=== PATIENT | female | born 1955 | race Caucasian/White ===

== ENCOUNTER 2016-07-18 10:02 | Observation (INO) | payer BC ==
[2016-07-18] VITALS (8 sets, daily range): BP systolic 96–131; BP diastolic 52–79; PULSE 50–80; RESP 18–20; TEMP 97.4–97.9; O2SAT 96–100
[~2016-07-18] VITALS: Ht 165.1 cm; Wt 75.0 kg
[~2016-07-18 10:02] MED LIST: ATOR10TA15 PO; LISI10TA3 PO; OMEP20TA PO; PARO20TA2 PO; TOPI1TAB97 PO; TRAM50TA PO
[2016-07-18] MEDS ORDERED: SODIUM CHLOR 0.9% 1000 ML INJ 1,000 ML IV ONE (11:57)
[2016-07-18] MEDS ORDERED: SODIUM CHLORIDE 0.9% FLUSH 5 ML FLUSH IVF PRN (12:00)
--- NOTE | 2016-07-18 12:06 | PD ---
HPI Chief Complaint: Cardiac Complaint Time Seen by Provider: 11:42 Travel History International Travel<30 days: No Contact w/Intl Traveler<30days: No Traveled to known affect area: No History of Present Illness HPI This is a 61-year-old female who has a history of Crohn's disease who presents to the emergency department having onset 2 days ago of severe vomiting and epigastric abdominal pain following starting Dulcolax to prep for colonoscopy. She's been following with Dr. Crawley because a CT scan that she had was concerning for Crohn's disease in the transverse colon. She's been having chronic abdominal pain which is been going on for about 6 weeks. She went to an outside hospital to be evaluated for her vomiting and at that time she was found to be in atrial fibrillation which is a new diagnosis for her. Her heart rate was evidently in the 140s to 160s. She received IV Cardizem and ultimately was started on diltiazem and was discharged home with instructions to follow-up with Dr. Ohara this morning first thing in clinic. She says that she feels very dehydrated, lightheaded and dizzy. When she went to clinic this morning she found out that Dr. Ohara is not in the office today and she subsequently had an episode of near syncope where she nearly passed out but didn 't hit her head or hurt herself. She denies any chest pain. Currently she says she feels weak and fatigued. She does report abdominal pain but she says this is chronic for her and unchanged. She's been on a liquid diet for one week in the setting of the Crohn's disease. Yesterday she was started on a blood thinner and given a dose of oral long-acting diltiazem in the emergency department and asked to follow up today with Dr. Ohara. [facility] Past Medical History Narrative Medical Crohn's disease Atrial fibrillation Social History Tobacco Use: No Allergies-Medications (Allergen,Severity, Reaction): Coded Allergies: Aspirin (Verified Allergy, Severe, 07/18/16) Ativan (Verified Allergy, Severe, 07/18/16) Cephalexin (Verified Allergy, Severe, 07/18/16) Contrast Media (Verified Allergy, Severe, 07/18/16) Dipyridamole (Verified Allergy, Severe, 07/18/16) Inderal (Verified Allergy, Severe, 07/18/16) Iodine (Verified Allergy, Severe, 07/18/16) Keflex (Verified Allergy, Severe, 07/18/16) Vancomycin (Verified Allergy, Severe, 07/18/16) Reported Meds & Prescriptions Reported Meds & Active Scripts Active Reported Topiramate 25 Mg Tab 25 Mg PO HS Paroxetine (Paroxetine HCl) 20 Mg Tab 20 Mg PO DAILY Omeprazole 20 Mg Tab 20 Mg PO DAILY Lisinopril 10 Mg Tab 10 Mg PO DAILY Atorvastatin (Atorvastatin Calcium) 10 Mg Tab 10 Mg PO DAILY Review of Systems Except as stated in HPI: all other systems reviewed are Neg Physical Exam Narrative GENERAL: Moving all extremities. SKIN: Dry with skin tenting HEAD: Atraumatic. Normocephalic. EYES: Pupils equal and round. No injection or drainage. ENT: Dry mucous membranes. NECK: Trachea midline. CARDIOVASCULAR: Regular rate and rhythm. No murmur appreciated. RESPIRATORY: Clear to auscultation. Breath sounds equal bilaterally. GASTROINTESTINAL: Abdomen soft, diffusely tender to palpation with guarding MUSCULOSKELETAL: No obvious deformities. NEUROLOGICAL: Awake and alert. No obvious cranial nerve deficits. Moving all extremities. PSYCHIATRIC: Appropriate mood and affect; insight and judgment normal. Data Data Last Documented VS Vital Signs Date Time Temp Pulse Resp B/P Pulse Ox O2 Delivery O2 Flow Rate FiO2 07/18/16 12:23 57 07/18/16 12:22 100 Room Air 07/18/16 12:00 19 131/79 07/18/16 10:06 97.8 Orders Electrocardiogram (07/18/16 ) Complete Blood Count With Diff (07/18/16 11:57) Comprehensive Metabolic Panel (07/18/16 11:57) Magnesium (Mg) (07/18/16 11:57) B-Type Natriuretic Peptide (07/18/16 11:57) Troponin I (07/18/16 11:57) Ecg Monitoring (07/18/16 11:57) Iv Access Insert/Monitor (07/18/16 11:57) Oximetry (07/18/16 11:57) Sodium Chloride 0.9% Flush (Ns Flush) (07/18/16 12:00) Sodium Chlor 0.9% 1000 Ml Inj (Ns 1000 M (07/18/16 11:57) Sodium Chlor 0.9% 1000 Ml Inj (Ns 1000 M (07/18/16 13:45) Morphine Inj (Morphine Inj) (07/18/16 14:15) Admit Order (Ed Use Only) (07/18/16 14:16) Labs Laboratory Tests Test 07/18/16 12:08 White Blood Count 5.8 TH/MM3 Red Blood Count 4.50 MIL/MM3 Hemoglobin 13.9 GM/DL Hematocrit 40.9 % Mean Corpuscular Volume 91.0 FL Mean Corpuscular Hemoglobin 31.0 PG Mean Corpuscular Hemoglobin 34.0 % Concent Red Cell Distribution Width 13.1 % Platelet Count 214 TH/MM3 Mean Platelet Volume 8.9 FL Neutrophils (%) (Auto) 63.0 % Lymphocytes (%) (Auto) 28.6 % Monocytes (%) (Auto) 6.8 % Eosinophils (%) (Auto) 1.4 % Basophils (%) (Auto) 0.2 % Neutrophils # (Auto) 3.7 TH/MM3 Lymphocytes # (Auto) 1.7 TH/MM3 Monocytes # (Auto) 0.4 TH/MM3 Eosinophils # (Auto) 0.1 TH/MM3 Basophils # (Auto) 0.0 TH/MM3 CBC Comment DIFF FINAL Differential Comment Sodium Level 141 MEQ/L Potassium Level 4.3 MEQ/L Chloride Level 114 MEQ/L Carbon Dioxide Level 19.3 MEQ/L Anion Gap 8 MEQ/L Blood Urea Nitrogen 14 MG/DL Creatinine 0.84 MG/DL Estimat Glomerular Filtration 68 ML/MIN Rate Random Glucose 84 MG/DL Calcium Level 7.4 MG/DL Protein Corrected Calcium 7.8 MG/DL Magnesium Level 1.7 MG/DL Total Bilirubin 1.1 MG/DL Aspartate Amino Transf 35 U/L (AST/SGOT) Alanine Aminotransferase 18 U/L (ALT/SGPT) Alkaline Phosphatase 101 U/L Troponin I 0.03 NG/ML B-Type Natriuretic Peptide 26 PG/ML Total Protein 6.4 GM/DL Albumin 2.9 GM/DL Lipase 67 U/L [facility] Medical Decision Making Medical Screen Exam Complete: Yes Emergency Medical Condition: Yes Interpretation(s) Afebrile, no tachycardia, normotensive No leukocytosis Anion gap of 8 Bicarbonate is 19 BNP is normal Lipase is normal Differential Diagnosis Arrhythmia, electrolyte abnormality, dehydration, myocardial infarction Narrative Course This is a 61-year-old female who presents the emergency department having had a difficult week with vomiting following a colonoscopy prep complicated by atrial fibrillation with RVR, subsequently having had a syncopal episode at 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 On exam the patient appears dehydrated. She is placed on a monitor and an IV was established. Labs are reassuring EKG is a normal sinus rhythm. Given the patient's recurrent visit to the emergency department and episode of syncope this morning at think it's reasonable to place her in observation and titrate her medications and monitor for recurrent episodes of arrhythmia. I spoke to both Dr. Ohara and her retail supervisor who agreed. Diagnosis Primary Impression: Dehydration Admitting Information Admitting Physician Requests: Observation Macrina Redmond MD Jul 18, 2016 12:06
[2016-07-18 12:21] LABS: AUTOMATED NEUTROPHIL # 3.7 TH/MM3 (1.8-7.7); BASOPHIL % 0.2 % (0.0-2.0); EOSINOPHIL # 0.1 TH/MM3 (0-0.4); EOSINOPHIL % 1.4 % (0.0-4.0); HEMATOCRIT 40.9 % (35.0-46.0); HEMO FLAGS DIFF FINAL; LYMPH % 28.6 % (9.0-44.0); LYMPHOCYTE # 1.7 TH/MM3 (1.0-4.8); MONO % 6.8 % (0.0-8.0); PLATELET COUNT 214 TH/MM3 (150-450); RED CELL DISTRIBUTION WIDTH 13.1 % (11.6-17.2); WHITE BLOOD COUNT 5.8 TH/MM3 (4.0-11.0)
[2016-07-18 13:14] LABS: BICARBONATE 19.3 MEQ/L (21.0-32.0); CALCIUM-PROTEIN CORRECTED 7.8 MG/DL (8.5-10.1); MAGNESIUM 1.7 MG/DL (1.5-2.5); TOTAL BILIRUBIN ADULT 1.1 MG/DL (0.2-1.0)
[2016-07-18 13:15] LABS: POTASSIUM 4.3 MEQ/L (3.5-5.1)
[2016-07-18] MEDS ORDERED: SODIUM CHLOR 0.9% 1000 ML INJ 1,000 ML IV SCH (13:45)
[2016-07-18] MEDS ORDERED: MORPHINE SULFATE 4 MG/ML INJ IV PUSH ONE (14:15)
[2016-07-18] MEDS ORDERED: ONDANSETRON HCL 4 MG/2 ML VIAL IVP PRN (14:30)
[2016-07-18] MEDS ORDERED: SODIUM CHLORIDE 0.9% FLUSH 5 ML FLUSH FLUSH PRN (14:30)
[2016-07-18] MEDS: ATORVASTATIN 10 MG TAB PO SCH (14:30)
[2016-07-18] MEDS ORDERED: NALOXONE HCL 0.4 MG/ML AMP IV PRN (14:30)
[2016-07-18] MEDS ORDERED: ACETAMINOPHEN 325 MG TAB PO PRN (14:30)
--- NOTE | 2016-07-18 14:48 | HHI.HP ---
HPI Service [facility] Primary Care Physician Pete Smith M.D. Admission Diagnosis syncope Diagnoses: Chief Complaint: passed out (Linda Pinto) Travel History International Travel<30 Days: No Contact w/Intl Traveler <30 Da: No Traveled to Known Affected Are: No (Linda Pinto) History of Present Illness This is a pleasant 61-year-old female with history of Crohn's disease, presented to the emergency room after she had what sounds like a near syncopal episode while waiting to be seen by cardiology. Patient endorses that she has been having abdominal pain, has seen Dr. Perez for history of gallstones as well as Dr. Birmingham gastroenterology for Crohn's disease. Both doctors were trying to rule out the cause of her abdominal pain., whether it was gallstones vs Chron's flare up. She was scheduled to have a EGD aand colonoscopy today. Yesterday while undergoing prep, she developed increased nausea and vomiting therefore she was told by Dr. [place] to go to [facility] to the emergency room. During evaluation at that facility, EKG showed that the patient was in A. fib with RVR with heart rate between 140 and 160. GI work up was put on hold. She was given IV Diltiazem and then was given Cardizem CD and instructed to follow up with Dr. Ohara today. Patient denies prior history of atrial fibrillation. Indicates that since April 2016, she's had palpitations with dizziness and near syncopal episodes. Cardiology has done workup consisting of echo, carotid ultrasound and stress test and were all negative. Cardiac cath 06/2016 showed normal coronaries. Patient states that while waiting to see her paper bundler today, she fell very lightheaded and dizzy. She found that that he was not in the office and she subsequently had a near syncopal episode. She was eased down to the floor by her , she did not hit her head, no neck pain. No chest pain, no shortness of breath. She feels very weak and fatigued, has diffuse abdominal tenderness which she says is chronic and unchanged. States that she's been on a liquid diet for 1 week waiting for GI workup. Yesterday she ate a sandwich and tolerated well. She has episodes of constipation and diarrhea associated with Chron's. She is not on any maintenance therapy. During ED evaluation, she was evaluated, was hemodynamically stable. Heart rate is noted a 57, sinus rhythm. CBC is unremarkable. BMP is remarkable for carbon dioxide 19.3, low calcium 7.8 with total bilirubin 1.1. GFR 68. EKG was sinus rhythm. Patient was given a liter IV fluids. At this time she is resting comfortably, complaining of diffuse abdominal tenderness with minimal palpation which is unchanged. Pain more significant to epigastric area. Patient is admitted for further evaluation and treatment. (Linda Pinto) Review of Systems Constitutional: COMPLAINS OF: Dizziness, DENIES: Diaphoretic episodes, Fatigue , Fever, Weight gain, Weight loss, Chills, Change in appetite, Night Sweats Endocrine: DENIES: Abnorml menstrual pattern, Heat/cold intolerance, Polydipsia , Polyuria, Polyphagia Eyes: DENIES: Blurred vision, Diplopia, Eye inflammation, Eye pain, Vision loss , Photosensitivity, Double Vision Ears, nose, mouth, throat: DENIES: Tinnitus, Hearing loss, Vertigo, Nasal discharge, Oral lesions, Throat pain, Hoarseness, Ear Pain, Running Nose, Epistaxis, Sinus Pain, Toothache, Odynophagia Respiratory: DENIES: Apneas, Cough, Snoring, Wheezing, Hemoptysis, Sputum production, Shortness of breath Cardiovascular: COMPLAINS OF: Palpitations, Syncope, DENIES: Chest pain, Dyspnea on Exertion, PND, Lower Extremity Edema, Orthopnea, Claudication Gastrointestinal: COMPLAINS OF: Abdominal pain, Constipation, Diarrhea, DENIES : Black stools, Bloody stools, Nausea, Vomiting, Difficulty Swallowing, Anorexia Genitourinary: DENIES: Abnormal vaginal bleeding, Dysmenorrhea, Dyspareunia, Sexual dysfunction, Urinary frequency, Urinary incontinence, Urgency, Hematuria , Dysuria, Nocturia, Vaginal discharge Musculoskeletal: DENIES: Joint pain, Muscle aches, Stiffness, Joint Swelling, Back pain, Neck pain Integumentary: DENIES: Abnormal pigmentation, Pruritus, Rash, Nail changes, Breast masses, Breast skin changes, Nipple discharge Hematologic/lymphatic: DENIES: Bruising, Lymphadenopathy Immunologic/allergic: DENIES: Eczema, Urticaria Neurologic: DENIES: Abnormal gait, Headache, Localized weakness, Paresthesias, Seizures, Speech Problems, Tremor, Poor Balance Psychiatric: DENIES: Anxiety, Confusion, Mood changes, Depression, Hallucinations, Agitation, Suicidal Ideation, Homicidal Ideation, Delusions ( Linda Pinto) Past Family Social History Past Medical History Hypertension Recent diagnosis of A. fib Recent findings of cholelithiasis Crohn's disease, with chronic constipation and diarrhea, has been on prednisone in the past GERD Chronic headaches Carotid artery disease Chronic left carotid bruit Hyperlipidemia Depression Past Surgical History Right carotid endarterectomy [address] Lester Cardiac catheter June 2016 with normal coronaries Discectomy 2 Hemorrhoidectomy Reported Medications Reported Meds & Active Scripts Active Reported Topiramate 25 Mg Tab 25 Mg PO HS Paroxetine (Paroxetine HCl) 20 Mg Tab 20 Mg PO DAILY Omeprazole 20 Mg Tab 20 Mg PO DAILY Lisinopril 10 Mg Tab 10 Mg PO DAILY Atorvastatin (Atorvastatin Calcium) 10 Mg Tab 10 Mg PO DAILY (Linda Pinto) Allergies: Coded Allergies: Aspirin (Verified Allergy, Severe, 07/18/16) Ativan (Verified Allergy, Severe, 07/18/16) Cephalexin (Verified Allergy, Severe, 07/18/16) Contrast Media (Verified Allergy, Severe, 07/18/16) Dipyridamole (Verified Allergy, Severe, 07/18/16) Inderal (Verified Allergy, Severe, 07/18/16) Iodine (Verified Allergy, Severe, 07/18/16) Keflex (Verified Allergy, Severe, 07/18/16) Vancomycin (Verified Allergy, Severe, 07/18/16) Active Ordered Medications Inpatient Medications Acetaminophen (Tylenol) 650 mg Q4H PRN PO TEMP > 100.4; Start 07/18/16 at 14:30 Atorvastatin Calcium (Lipitor) 10 mg DAILY PO ; Start 07/18/16 at 14:30 Diltiazem HCl (Cardizem) 30 mg QID PO ; Start 07/18/16 at 18:00 IV Flush (NS Flush) 2 ml BID FLUSH ; Start 07/18/16 at 21:00 Morphine Sulfate 4 mg 4 mg ONCE ONCE IV PUSH ; Start 07/18/16 at 14:15; Stop at 14:16; Status DC Naloxone HCl (Narcan Inj) 0.4 mg UNSCH PRN IV SEE LABEL COMMENTS; Start at 14:30 Ondansetron HCl (Zofran Inj) 4 mg Q6H PRN IVP NAUSEA OR VOMITING; Start at 14:30 Pantoprazole Sodium (Protonix) 20 mg DAILY PO ; Start 07/18/16 at 14:30 Paroxetine HCl (Paxil) 20 mg DAILY PO ; Start 07/19/16 at 09:00 Sodium Chloride (NS 1000 ml Inj) 1,000 ml @ 100 mls/hr Q10H IV ; Start at 14:18 Topiramate (Topamax) 25 mg HS PO ; Start 07/18/16 at 21:00 Family History Mother is alive and well, she is 83 years old, history of CAD, CABG Father Social History Patient is , lives at home with . No EtOH, no tobacco abuse, no substance abuse. (Linda Pinto) Physical Exam Vital Signs Vital Signs Date Time Temp Pulse Resp B/P Pulse Ox O2 Delivery O2 Flow Rate FiO2 07/18/16 12:23 57 07/18/16 12:22 100 Room Air 07/18/16 10:06 97.8 80 20 130/66 98 Room Air Physical Exam GENERAL: This is a well-nourished, well-developed patient, in no apparent distress. SKIN: No rashes, ecchymoses or lesions. Cool and dry. HEAD: Atraumatic. Normocephalic. No temporal or scalp tenderness. EYES: Pupils equal round and reactive. Extraocular motions intact. No scleral icterus. No injection or drainage. ENT: Nose without bleeding, purulent drainage or septal hematoma. Throat without erythema, tonsillar hypertrophy or exudate. Uvula midline. Airway patent. NECK: Trachea midline. No JVD or lymphadenopathy. Supple, nontender, no meningeal signs. Left carotid bruit. CARDIOVASCULAR: Regular rate and rhythm without murmurs, gallops, or rubs. RESPIRATORY: Clear to auscultation. Breath sounds equal bilaterally. No wheezes , rales, or rhonchi. GASTROINTESTINAL: Diffuse abdominal tenderness with minimal palpation, normoactive bowel sounds 4. Unable to detect any organomegaly, does not permit deep palpation due to discomfort. Indicates pain is chronic. MUSCULOSKELETAL: Extremities without clubbing, cyanosis, or edema. No joint tenderness, effusion, or edema noted. No calf tenderness. Negative Homans sign bilaterally. NEUROLOGICAL: Awake and alert. Cranial nerves II through XII intact. Motor and sensory grossly within normal limits. Five out of 5 muscle strength in all muscle groups. Normal speech. Laboratory Laboratory Tests Test 07/18/16 12:08 White Blood Count 5.8 Red Blood Count 4.50 Hemoglobin 13.9 Hematocrit 40.9 Mean Corpuscular Volume 91.0 Mean Corpuscular Hemoglobin 31.0 Mean Corpuscular Hemoglobin 34.0 Concent Red Cell Distribution Width 13.1 Platelet Count 214 Mean Platelet Volume 8.9 Neutrophils (%) (Auto) 63.0 Lymphocytes (%) (Auto) 28.6 Monocytes (%) (Auto) 6.8 Eosinophils (%) (Auto) 1.4 Basophils (%) (Auto) 0.2 Neutrophils # (Auto) 3.7 Lymphocytes # (Auto) 1.7 Monocytes # (Auto) 0.4 Eosinophils # (Auto) 0.1 Basophils # (Auto) 0.0 CBC Comment DIFF FINAL Differential Comment Sodium Level 141 Potassium Level 4.3 Chloride Level 114 Carbon Dioxide Level 19.3 Anion Gap 8 Blood Urea Nitrogen 14 Creatinine 0.84 Estimat Glomerular Filtration 68 Rate Random Glucose 84 Calcium Level 7.4 Protein Corrected Calcium 7.8 Magnesium Level 1.7 Total Bilirubin 1.1 Aspartate Amino Transf 35 (AST/SGOT) Alanine Aminotransferase 18 (ALT/SGPT) Alkaline Phosphatase 101 Troponin I 0.03 B-Type Natriuretic Peptide 26 Total Protein 6.4 Albumin 2.9 (Linda Pinto) Result Diagram: 07/18/16 1208 07/18/16 1208 Assessment and Plan Problem List: (1) Near syncope (2) Dehydration (3) Abdominal pain (4) Atrial fibrillation (5) Hypertension (6) Hx of Crohn's disease (7) History of carotid artery disease Assessment and Plan Admit to Dr. Jones 61-year-old white female with recent diagnosis of atrial fibrillation, came to emergency room after near syncopal episode. Patient has been undergoing bowel prep, had been clear liquid diet since last , was dehydrated. Received Cardizem CD yesterday at emergency room at another facility. Patient admitted with near syncopal episode, EKG- sinus rhythm -Continue IV fluids Continuous cardiac telemetry Cardiology consultation, Dr. Ohara Chronic abdominal pain, currently undergoing workup to rule out cholelithiasis versus Crohn's disease recurrence. Patient was due to have EGD and colonoscopy today -Morphine when necessary -Antiemetics PRN We will obtain records from [facility] Hypertension, stable Continue home medications History of carotid disease, previous right enterectomy, left carotid bruit, stable Continue to monitor, continue with statins Home medications reviewed, initiated as indicated Plan of care discussed with the patient, attending and registered nurse. Further management of the patient be dependent on the hospital course This patient was seen by myself and Dr. 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
[2016-07-18] MEDS: PANTOPRAZOLE SOD 20 MG DELAYED RELEASE TAB PO SCH (15:20)
[2016-07-18] MEDS: SODIUM CHLOR 0.9% 1000 ML INJ 1,000 ML IV SCH (16:23)
[2016-07-18] MEDS: DILTIAZEM HCL 30 MG TAB PO SCH ×2 (18:00→20:28)
--- NOTE | 2016-07-18 19:30 | EKG ---
Date Performed: 07/18/2016 Time Performed: 10:45:11 PTAGE: 61 years EKG: Sinus rhythm NORMAL ECG NO PREVIOUS TRACING DOCTOR: Jaiden Henderson Interpretating Date/Time 07/18/2016 19:28:04
[2016-07-18] MEDS: SODIUM CHLORIDE 0.9% FLUSH 5 ML FLUSH FLUSH SCH (20:17)
[2016-07-18] MEDS: TOPIRAMATE 25 MG TAB PO SCH (20:27)
[2016-07-18] MEDS: MORPHINE SULFATE 4 MG/ML INJ IV PUSH PRN (20:28)
[2016-07-19] VITALS (8 sets, daily range): BP systolic 97–119; BP diastolic 51–60; PULSE 56–109; RESP 18–20; TEMP 98–98.5; O2SAT 93–97
[2016-07-19] MEDS: SODIUM CHLOR 0.9% 1000 ML INJ 1,000 ML IV SCH (01:06)
[2016-07-19 05:04] LABS: AUTOMATED NEUTROPHIL # 2.6 TH/MM3 (1.8-7.7); BASOPHIL % 0.4 % (0.0-2.0); EOSINOPHIL # 0.1 TH/MM3 (0-0.4); EOSINOPHIL % 2.4 % (0.0-4.0); HEMATOCRIT 32.4 % (35.0-46.0); HEMO FLAGS DIFF FINAL; LYMPHOCYTE # 1.9 TH/MM3 (1.0-4.8); MEAN CELL VOLUME 92.1 FL (80.0-100.0); MEAN CORPUSCULAR HEMOGLOBIN 31.4 PG (27.0-34.0); MEAN CORPUSCULAR HGB CONC 34.1 % (32.0-36.0); MONO % 7.8 % (0.0-8.0); NEUT % 51.4 % (16.0-70.0); PLATELET COUNT 152 TH/MM3 (150-450); RED BLOOD COUNT 3.52 MIL/MM3 (4.00-5.30); RED CELL DISTRIBUTION WIDTH 13.5 % (11.6-17.2); WHITE BLOOD COUNT 5.1 TH/MM3 (4.0-11.0)
[2016-07-19 05:11] LABS: ALKALINE PHOSPHATASE 88 U/L (45-117); TOTAL BILIRUBIN ADULT 0.9 MG/DL (0.2-1.0)
[2016-07-19 05:17] LABS: ALT (GPT) 14 U/L (10-53); ANION GAP 7 MEQ/L (5-15); AST (GOT) 12 U/L (15-37); BLOOD UREA NITROGEN 11 MG/DL (7-18); CHLORIDE 115 MEQ/L (98-107); GLOMERULAR FILTRATION RATE 63 ML/MIN (>89); POTASSIUM 3.7 MEQ/L (3.5-5.1); SODIUM (NA) 145 MEQ/L (136-145)
--- NOTE | 2016-07-19 07:50 | HHI.PR ---
Subjective Subjective Remarks no cp no sob no dizziness abd. pain chronic, tender all over, it's constant, "7" no n/v no diarrhea voiding okay tele reviewed, SB, HR 50s BP 100s Review of Systems Constitutional Constitutional Remarks 12 point ROS completed, neg. except as noted above Vitals/Results Vital Signs Vital Signs Date Time Temp Pulse Resp B/P Pulse Ox O2 Delivery O2 Flow Rate FiO2 07/19/16 04:48 98.2 88 20 100/60 97 07/19/16 01:01 98.0 90 18 100/55 97 07/18/16 20:35 21 07/18/16 19:31 97.9 52 20 96/52 96 07/18/16 19:26 50 07/18/16 16:51 55 07/18/16 16:05 97.4 63 18 117/59 100 07/18/16 15:00 56 20 116/59 100 Room Air 07/18/16 12:23 57 07/18/16 12:22 100 Room Air 07/18/16 12:00 56 19 131/79 100 Room Air 07/18/16 10:06 97.8 80 20 130/66 98 Room Air CBC/BMP: 07/19/16 0420 07/19/16 0420 Lab Results Laboratory Tests Test 07/18/16 07/19/16 12:08 04:20 White Blood Count 5.8 TH/MM3 5.1 TH/MM3 Red Blood Count 4.50 MIL/MM3 3.52 MIL/MM3 Hemoglobin 13.9 GM/DL 11.0 GM/DL Hematocrit 40.9 % 32.4 % Mean Corpuscular Volume 91.0 FL 92.1 FL Mean Corpuscular Hemoglobin 31.0 PG 31.4 PG Mean Corpuscular Hemoglobin 34.0 % 34.1 % Concent Red Cell Distribution Width 13.1 % 13.5 % Platelet Count 214 TH/MM3 152 TH/MM3 Mean Platelet Volume 8.9 FL 8.8 FL Neutrophils (%) (Auto) 63.0 % 51.4 % Lymphocytes (%) (Auto) 28.6 % 38.0 % Monocytes (%) (Auto) 6.8 % 7.8 % Eosinophils (%) (Auto) 1.4 % 2.4 % Basophils (%) (Auto) 0.2 % 0.4 % Neutrophils # (Auto) 3.7 TH/MM3 2.6 TH/MM3 Lymphocytes # (Auto) 1.7 TH/MM3 1.9 TH/MM3 Monocytes # (Auto) 0.4 TH/MM3 0.4 TH/MM3 Eosinophils # (Auto) 0.1 TH/MM3 0.1 TH/MM3 Basophils # (Auto) 0.0 TH/MM3 0.0 TH/MM3 CBC Comment DIFF FINAL DIFF FINAL Differential Comment Sodium Level 141 MEQ/L 145 MEQ/L Potassium Level 4.3 MEQ/L 3.7 MEQ/L Chloride Level 114 MEQ/L 115 MEQ/L Carbon Dioxide Level 19.3 MEQ/L 23.0 MEQ/L Anion Gap 8 MEQ/L 7 MEQ/L Blood Urea Nitrogen 14 MG/DL 11 MG/DL Creatinine 0.84 MG/DL 0.90 MG/DL Estimat Glomerular Filtration 68 ML/MIN 63 ML/MIN Rate Random Glucose 84 MG/DL 88 MG/DL Calcium Level 7.4 MG/DL 7.9 MG/DL Protein Corrected Calcium 7.8 MG/DL Magnesium Level 1.7 MG/DL Total Bilirubin 1.1 MG/DL 0.9 MG/DL Aspartate Amino Transf 35 U/L 12 U/L (AST/SGOT) Alanine Aminotransferase 18 U/L 14 U/L (ALT/SGPT) Alkaline Phosphatase 101 U/L 88 U/L Troponin I 0.03 NG/ML B-Type Natriuretic Peptide 26 PG/ML Total Protein 6.4 GM/DL 5.4 GM/DL Albumin 2.9 GM/DL 2.7 GM/DL Lipase 67 U/L 115 U/L Physical Exam General General Appearance: Well Developed, Well Nourished, No Acute Distress, Comfortable Eyes Eye Exam: Pupils Equal, Pupils Reactive Ears & Nose Ears & Nose Exam: Nasal Mucosa [place] Throat Throat Exam: Oral Mucosa [place] & Moist Neck Neck Exam: Neck Supple, Trachea Midline Pulmonary Resp Exam: Clear Bilaterally, No Distress Cardiology CV Exam: Regular, Good Perfusion, Bradycardia Gastrointestinal/Abdomen GI Exam: Soft, Bowel Sounds Present, Non-Distended GI Remarks diffuse tenderness Musculoskeletal MS Exam: Joints Intact Integumentary Skin Exam: Warm, Dry Extremeties Extremities Exam: No Edema, Pedal Pulses Palpable Neurologic Neuro Exam: Alert, Awake, Oriented, Speech Clear, Moving All Extremities, No Focal Deficits Psychiatric Psych Exam: Appropriate Responses VTE Prophylaxis VTE Prophylaxis Device: SCDs PUD Prophylasis PUD Prophylaxis: Protonix Assessment/Plan Problem List: (1) Near syncope (2) Abdominal pain (3) Hypertension (4) Hx of Crohn's disease (5) History of carotid artery disease Assessment/Plan 61-year-old white female with recent diagnosis of atrial fibrillation, came to emergency room after near syncopal episode. Patient has been undergoing bowel prep, had been clear liquid diet since last , was dehydrated. Received Cardizem CD yesterday at emergency room at another facility. Patient admitted with near syncopal episode, EKG- sinus rhythm -D/C IVF Continuous cardiac telemetry Cardiology consultation, Dr. Ohara-pending -Continue PO Cardizem, jun. to 30 mg PO TID, BP marginal 100s, SB HR 50s Chronic abdominal pain, currently undergoing workup to rule out cholelithiasis versus Crohn's disease recurrence. Patient was due to have EGD and colonoscopy today. Pain chronic, tolerating diet well. Needs to f/u GI when cleared by cardiology. -Morphine when necessary -Antiemetics PRN We will obtain records from [facility]-pending -Lipase normal Hypertension, noted low 100s, started on Cardizem yesterday. Hold parameters for meds -Monitor closely History of carotid disease, previous right enterectomy, left carotid bruit, stable Continue to monitor, continue with statins No afib overnight no syncope will have RN assist to ambulate wait for card input, poss. dc today if she's cleared. D/W RN D/W Dr. Jones D/W pt. This patient was seen by myself and Dr. Jones, this note is written on his behalf Problem Qualifiers (1) Abdominal pain: Qualified Code: R10.84 - Generalized abdominal pain (2) Hypertension: Qualified Code: I10 - Essential hypertension Linda Pinto Jul 19, 2016 07:50
[2016-07-19] MEDS: PARoxetine HCL 20 MG TAB PO SCH (09:00)
[2016-07-19] MEDS: ATORVASTATIN 10 MG TAB PO SCH (09:00)
[2016-07-19] MEDS: PANTOPRAZOLE SOD 20 MG DELAYED RELEASE TAB PO SCH (09:00)
[2016-07-19] MEDS: MORPHINE SULFATE 4 MG/ML INJ IV PUSH PRN ×2 (09:53→20:03)
[2016-07-19] MEDS: SODIUM CHLORIDE 0.9% FLUSH 5 ML FLUSH FLUSH SCH ×2 (09:55→20:04)
[2016-07-19 10:23] LABS: BACTERIA, URINE OCC /hpf; BLOOD, URINE NEG (NEG); COMMENT (UR) CULTURE INDICATED; CULTURE IF INDICATED CULTURE INDICATED; GLUCOSE,URINE NEG (NEG); HYALINE CAST, URINE 7 /lpf (RARE); KETONE, URINE NEG (NEG); MUCUS URINE MOD /lpf (OCC); NITRITE,URINE NEG (NEG); PH, URINE 5.5 (5.0-8.5); SQUAMOUS EPITHELIAL CELL URINE 6 /hpf (0-5); TRANSITIONAL EPI CELLS, URINE 1 /hpf; URINE COLOR YELLOW (YELLW/STRAW)
--- NOTE | 2016-07-19 11:36 | RADRPT ---
EXAM DATE/TIME: 07/19/2016 11:14 [facility] COMPARISON: No previous studies available for comparison. INDICATIONS : Short of breath and cough MEDICAL HISTORY : None. SURGICAL HISTORY : None. ENCOUNTER: Initial ACUITY: 1 day PAIN SCORE: 8/10 LOCATION: chest FINDINGS: PA and lateral views of the chest demonstrate the lungs to be symmetrically aerated without evidence of mass, infiltrate or effusion. The cardiomediastinal contours are unremarkable. Osseous structure s are intact. CONCLUSION: No acute disease. Nadia Short MD on July 19, 2016 at 11:32 Board Certified Radiologist. This report was verified electronically.
--- NOTE | 2016-07-19 12:31 | RADRPT ---
EXAM DATE/TIME: 07/19/2016 12:03 [facility] COMPARISON: CHEST PA & LAT, July 19, 2016, 11:14. INDICATIONS : Dyspnea with syncopal episode. DOSE: 8.5 mCi Tc99m MAA IV 1.2 mCi Tc99m DTPA aerosol MEDICAL HISTORY : Hypertension. Crohns disease. Gastroesophageal reflux disease. SURGICAL HISTORY : Carotid endarterectomy. Hemorrhoidectomy. Discectomy. ENCOUNTER: Initial ACUITY: 1 day PAIN SCALE: 0/10 LOCATION: Chest. TECHNIQUE: Following five minutes of tidal breathing of DTPA aerosol, planar images of the lungs were performed in eight projections. The patient was then injected with MAA, and eight-view perfusion scan was perf ormed. FINDINGS: There is a homogeneous pattern of aerosol delivery to the periphery of both lungs. No focal ventilat ory defects are seen. The perfusion lung scan demonstrates a homogenous pattern of uptake in both lungs. No segmental or s ubsegmental defects are seen. CONCLUSION: Low probability for pulmonary embolism. Yemi Lo MD on July 19, 2016 at 12:28 Board Certified Radiologist. This report was verified electronically.
[2016-07-19] MEDS: CIPROFLOXACIN 500 MG TAB PO SCH ×2 (13:25→20:03)
[2016-07-19] MEDS: DILTIAZEM HCL 30 MG TAB PO SCH ×2 (13:25→18:00)
--- NOTE | 2016-07-19 13:57 | PD.CONS ---
HPI Service Cardiology Physicians Consult Requested By Dr Jones Reason for Consult Afib RVR Primary Care Physician Ptee Smith M.D. History of Present Illness LATE ENTRY. PATIENT SEEN AND EVALUATED AT 0915 TODAY The patient is a 61 year old female with a cardiac history carotid stenosis, chest pain with a negative cardiac catheterization 06/2016, , palpitations, and HTN. Other notable history Crohns disease, hiatal hernia and COPD. The patient recently was sent to [facility] for evaluation for nausea, vomiting, palpitations and lightheadedness after starting bowel prep and was found to have atrial fibrillation with RVR. She took one Eliquis and was started on cardizem PO. Yesterday, she came to our office for evaluation and had a near syncopal event in the waiting room, and was sent to the ER to evaluation. Today, she complains of new chest pain that is worse with deep breaths and coughing. She has a prolonged history of epigastric pain that she related to Crohns, but is pending GI study. She also states that her symptoms of palpitations and lightheadedness that she experience prior to her admission at [facility] were the same as her symptoms in April. EKG currently show NSR. BP is low. Troponin X 1 and EKG negative for acute ischemia. (Madelyn Arshad) Review of Systems Consitutional: COMPLAINS OF: Fatigue, DENIES: Fever, Chills, Weight gain, Weight loss Eyes: DENIES: Amaurosis Fugax, Change in vision HEENT: COMPLAINS OF: Lightheadedness, DENIES: Change in hearing Respiratory: COMPLAINS OF: Cough, Shortness of breath, DENIES: See HPI, Snoring, Wheezing, Sputum production Cardiovascular: COMPLAINS OF: Chest pain, Palpitations, Tachycardia, DENIES: See HPI, Syncope Gastrointestinal: COMPLAINS OF: Nausea, Vomiting, Change in bowel habits, Reflux, DENIES: Bloody stools, Melena Genitourinary: DENIES: Urinary incontinence, Difficulty voiding Integumentary: DENIES: Rash Neurologic: DENIES: Tingling or numbness, Memory problems, Poor Balance, Stroke symptoms Musculoskeletal: DENIES: Joint pain, Muscle pain, Limited range of motion, Back pain Psychiatric: DENIES: Anxiety, Depression, Sleep disturbances Hematologic: DENIES: Bruising tendencies, Bleeding tendencies Endocrine: DENIES: Weight gain, Weight loss, Thyroid disease (Madelyn Arshad ) Past Family Social History Allergies: Coded Allergies: Aspirin (Verified Allergy, Severe, 07/18/16) Ativan (Verified Allergy, Severe, 07/18/16) Cephalexin (Verified Allergy, Severe, 07/18/16) Contrast Media (Verified Allergy, Severe, 07/18/16) Dipyridamole (Verified Allergy, Severe, 07/18/16) Inderal (Verified Allergy, Severe, 07/18/16) Iodine (Verified Allergy, Severe, 07/18/16) Keflex (Verified Allergy, Severe, 07/18/16) Vancomycin (Verified Allergy, Severe, 07/18/16) Past Medical History See HPI Past Surgical History cardiac cath 05/2016 Right carotid endarterectomy Hemorrhoidectomy Back surgery Left breast biopsy Reported Medications Reviewed Active Ordered Medications Current Medications Medications (Trade) Dose Ordered Sig/Ellie Route Start Time Stop Time Status Last Admin (NS Flush) 2 ml UNSCH PRN FLUSH 07/18/16 14:30 (NS Flush) 2 ml BID FLUSH 07/18/16 21:00 07/19/16 09:55 (Tylenol) 650 mg Q4H PRN PO 07/18/16 14:30 (Zofran Inj) 4 mg Q6H PRN IVP 07/18/16 14:30 (Narcan Inj) 0.4 mg UNSCH PRN IV 07/18/16 14:30 (Lipitor) 10 mg DAILY PO 07/18/16 14:30 (Protonix) 20 mg DAILY PO 07/18/16 14:30 07/18/16 15:20 (Paxil) 20 mg DAILY PO 07/19/16 09:00 (Topamax) 25 mg HS PO 07/18/16 21:00 07/18/16 20:27 (Morphine Inj) 4 mg Q3H PRN IV PUSH 07/18/16 16:00 07/19/16 09:53 (Cardizem) 30 mg TID PO 07/19/16 13:00 07/19/16 13:25 (Cipro) 500 mg Q12HR PO 07/19/16 13:00 07/19/16 13:25 Family History father stroke mother CABG Social History Live with , no ETOH or smoking (Madelyn Arshad) Physical Exam Vital Signs Vital Signs Date Time Temp Pulse Resp B/P Pulse Ox O2 Delivery O2 Flow Rate FiO2 07/19/16 08:00 56 07/19/16 07:59 98.0 58 20 97/55 96 07/19/16 04:48 98.2 88 20 100/60 97 07/19/16 01:01 98.0 90 18 100/55 97 07/18/16 20:35 21 07/18/16 19:31 97.9 52 20 96/52 96 07/18/16 19:26 50 07/18/16 16:51 55 07/18/16 16:05 97.4 63 18 117/59 100 07/18/16 15:00 56 20 116/59 100 Room Air Physical Exam GENERAL: Middle aged female, no distress, bedside SKIN: Warm and dry. HEAD: Atraumatic. Normocephalic. EYES: Pupils equal and round. No scleral icterus. No injection or drainage. ENT: No nasal bleeding or discharge. Mucous membranes pink and moist. NECK: Trachea midline. CARDIOVASCULAR: Regular rate and rhythm. RESPIRATORY: No accessory muscle use. Clear to auscultation. Breath sounds equal bilaterally. Inspiratory cough GASTROINTESTINAL: Abdomen soft, non-tender, nondistended. Hepatic and splenic margins not palpable. MUSCULOSKELETAL: Extremities without clubbing, cyanosis, or edema. No obvious deformities. NEUROLOGICAL: Awake and alert. No obvious cranial nerve deficits. Motor grossly within normal limits. Five out of 5 muscle strength in the arms and legs. Normal speech. PSYCHIATRIC: Appropriate mood and affect; insight and judgment normal. Laboratory Laboratory Tests Test 07/19/16 07/19/16 04:20 10:00 White Blood Count 5.1 Red Blood Count 3.52 Hemoglobin 11.0 Hematocrit 32.4 Mean Corpuscular Volume 92.1 Mean Corpuscular Hemoglobin 31.4 Mean Corpuscular Hemoglobin 34.1 Concent Red Cell Distribution Width 13.5 Platelet Count 152 Mean Platelet Volume 8.8 Neutrophils (%) (Auto) 51.4 Lymphocytes (%) (Auto) 38.0 Monocytes (%) (Auto) 7.8 Eosinophils (%) (Auto) 2.4 Basophils (%) (Auto) 0.4 Neutrophils # (Auto) 2.6 Lymphocytes # (Auto) 1.9 Monocytes # (Auto) 0.4 Eosinophils # (Auto) 0.1 Basophils # (Auto) 0.0 CBC Comment DIFF FINAL Differential Comment Sodium Level 145 Potassium Level 3.7 Chloride Level 115 Carbon Dioxide Level 23.0 Anion Gap 7 Blood Urea Nitrogen 11 Creatinine 0.90 Estimat Glomerular Filtration 63 Rate Random Glucose 88 Calcium Level 7.9 Total Bilirubin 0.9 Aspartate Amino Transf 12 (AST/SGOT) Alanine Aminotransferase 14 (ALT/SGPT) Alkaline Phosphatase 88 Total Protein 5.4 Albumin 2.7 Lipase 115 Urine Color YELLOW Urine Turbidity HAZY Urine pH 5.5 Urine Specific [place] 1.021 Urine Protein TRACE Urine Glucose (UA) NEG Urine Ketones NEG Urine Occult Blood NEG Urine Nitrite NEG Urine Bilirubin NEG Urine Urobilinogen LESS THAN 2.0 Urine Leukocyte Esterase LARGE Urine RBC 5 Urine WBC 70 Urine Squamous Epithelial 6 Cells Urine Transitional Epithelial 1 Cells Urine Bacteria OCC Urine Hyaline Casts 7 Urine Mucus MOD Microscopic Urinalysis Comment CULTURE INDICATED Date/Time Procedure Status Source Growth 07/19/16 10:00 Urine Culture Received Urine Clean Catch Pending (Madelyn Arshad) Result Diagram: 07/19/16 04207/19/16 0420 Imaging Last 72 hours Impressions Lung Scan-VQ Nuclear Medicine 07/19/16 0000 Signed Impressions: Service Date/Time: Tuesday, July 19, 2016 12:03 - CONCLUSION: Low probability for pulmonary embolism. Yemi Lo MD Chest X-Ray 07/19/16 0000 Signed Impressions: Service Date/Time: Tuesday, July 19, 2016 11:14 - CONCLUSION: No acute disease. Nadia Short MD (Madelyn Arshad) Assessment and Plan Assessment and Plan ASSESSMENT Pleuritic chest pain vs pericarditis. Patient had a recent negative cardiac cath. troponin and EKG negative for acute ischemia New onset atrial fibrillation with RVR. CHADSVASC 3 on the basis of gender, vascular disease and HTN Crohns disease PLAN: Exclude PE on the basis of pleuritic chest pain and cough Continue to monitor patient overnight Will not start oral anticoagulation at this time due to Crohns disease with symptoms of flare. She will need clearance from GI MD prior to starting therapy. Her Hgb decreased slightly, however could be dilutional. Continue Cardizem with hold parameters for BP and HR Patient seen and evaluated by Dr. Ohara. (Madelyn Arshad) Assessment and Plan The exam, history, and the medical decision-making described in the above note were completed with the assistance of the mid-level provider. I reviewed and agree with the findings presented. I attest that I had a [id number] encounter with the patient on the same day, and personally performed and documented my assessment and findings in the medical record. Had negative cath recently, has iodine allergy will plan VQ scan to r/o pulmonary embolus. Lev (Dariela Ohara MD) Madelyn Arshad Jul 19, 2016 13:57 Dariela Ohara MD Jul 19, 2016 14:54
[2016-07-19] MEDS: DEXAMETHASONE SOD PHOS 4 MG/ML VIAL IV PUSH SCH ×2 (17:01→22:11)
[2016-07-19] MEDS: TOPIRAMATE 25 MG TAB PO SCH (20:03)
[2016-07-20] VITALS: PULSE 62
[2016-07-20 04:00] VITALS: PULSE 92
[2016-07-20 04:17] VITALS: BP 125/63; PULSE 63; RESP 19; TEMP 98; O2SAT 97
[2016-07-20] MEDS: DEXAMETHASONE SOD PHOS 4 MG/ML VIAL IV PUSH SCH (07:11)
[2016-07-20 08:21] VITALS: PULSE 74
[2016-07-20 08:27] VITALS: BP 133/67; PULSE 62; RESP 16; TEMP 98.2; O2SAT 95
[2016-07-20] MEDS: PANTOPRAZOLE SOD 20 MG DELAYED RELEASE TAB PO SCH (08:48)
[2016-07-20] MEDS: SODIUM CHLORIDE 0.9% FLUSH 5 ML FLUSH FLUSH SCH (08:48)
[2016-07-20] MEDS: DILTIAZEM HCL 30 MG TAB PO SCH (08:48)
[2016-07-20] MEDS: CIPROFLOXACIN 500 MG TAB PO SCH (08:48)
[2016-07-20] MEDS: ATORVASTATIN 10 MG TAB PO SCH (08:48)
[2016-07-20] MEDS: PARoxetine HCL 20 MG TAB PO SCH (08:48)
[2016-07-20] MEDS: MORPHINE SULFATE 4 MG/ML INJ IV PUSH PRN (08:50)
[2016-07-20 09:03] VITALS: RESP 18
--- NOTE | 2016-07-20 09:43 | HHI.PR ---
Subjective Interval History no cp no sob no dizziness abd. pain chronic, slightly tender all over, it's constant, less than before tolerating diet no n/v no diarrhea voiding okay tele reviewed, sinus rhythm, controlled HR BP 100s 12 point ROS completed, neg. except as noted above Vitals/Results Intake & Output 07/19/16 07/19/16 07/20/16 15:00 23:00 07:00 Intake Total 2 ml Balance 2 ml Intake IV Total 2 ml # Voids 4 Vital Signs Vital Signs Date Time Temp Pulse Resp B/P Pulse Ox O2 Delivery O2 Flow Rate FiO2 07/20/16 09:03 18 07/20/16 08:27 98.2 62 16 133/67 95 07/20/16 08:21 74 07/20/16 04:17 98.0 63 19 125/63 97 07/20/16 04:00 92 07/20/16 00:00 62 07/19/16 23:38 98.1 62 18 119/57 97 07/19/16 20:00 109 07/19/16 19:58 98.4 83 19 113/57 97 07/19/16 15:36 98.5 63 18 98/51 93 CBC/BMP: 07/19/16 0420 07/19/16 0420 Lab Results Laboratory Tests Test 07/19/16 10:00 Urine Color YELLOW Urine Turbidity HAZY Urine pH 5.5 Urine Specific [place] 1.021 Urine Protein TRACE mg/dL Urine Glucose (UA) NEG mg/dL Urine Ketones NEG mg/dL Urine Occult Blood NEG Urine Nitrite NEG Urine Bilirubin NEG Urine Urobilinogen LESS THAN 2.0 MG/DL Urine Leukocyte Esterase LARGE Urine RBC 5 /hpf Urine WBC 70 /hpf Urine Squamous Epithelial 6 /hpf Cells Urine Transitional Epithelial 1 /hpf Cells Urine Bacteria OCC /hpf Urine Hyaline Casts 7 /lpf Urine Mucus MOD /lpf Microscopic Urinalysis Comment CULTURE INDICATED Microbiology Microbiology 07/19/16 Urine Culture, Received Pending Physical Exam General General Appearance: Well Developed, Well Nourished, No Acute Distress, Comfortable Eyes Eye Exam: Pupils Equal, Pupils Reactive Ears & Nose Ears & Nose Exam: Nasal Mucosa Carlos Throat Throat Exam: Oral Mucosa Carlos & Moist Neck Neck Exam: Neck Supple, Trachea Midline Pulmonary Resp Exam: Clear Bilaterally, No Distress Cardiology CV Exam: Regular, Normal Sinus Rhythm, Good Perfusion, Bradycardia Gastrointestinal/Abdomen GI Exam: Soft, Bowel Sounds Present, Non-Distended Musculoskeletal MS Exam: Joints Intact Integumentary Skin Exam: Warm, Dry Extremeties Extremities Exam: No Edema, Pedal Pulses Palpable Neurologic Neuro Exam: Alert, Awake, Oriented, Speech Clear, Moving All Extremities, No Focal Deficits Psychiatric Psych Exam: Appropriate Responses VTE Prophylaxis VTE Prophylaxis Device: SCDs PUD Prophylasis PUD Prophylaxis: Protonix Assessment/Plan Problem List: (1) Near syncope (2) Abdominal pain (3) Hypertension (4) Hx of Crohn's disease (5) History of carotid artery disease Assessment/Plan 61-year-old white female with recent diagnosis of atrial fibrillation, came to emergency room after near syncopal episode. Patient has been undergoing bowel prep, had been clear liquid diet since last , was dehydrated. Received Cardizem CD at emergency room at another facility. Patient admitted with near syncopal episode, EKG- sinus rhythm On Continuous cardiac telemetry showing sinus rhythm Cardiology consultation, Dr. Ohara-appreciated. Discussed with him yesterday okay to discharge today. Also as per Dr. Ohara anticoagulation after his colonoscopy -Continue PO Cardizem, dec. to 30 mg PO TID, BP and heart rate is stable Chronic abdominal pain, currently undergoing workup to rule out cholelithiasis versus Crohn's disease recurrence. Patient was due to have EGD and colonoscopy today. Pain chronic, tolerating diet well. Needs to f/u GI when cleared by cardiology. -Analgesics when necessary -Antiemetics PRN -Lipase normal Hypertension, noted low 100s, started on Cardizem yesterday. Hold parameters for meds -Monitor closely History of carotid disease, previous right enterectomy, left carotid bruit, stable Continue to monitor, continue with statins No afib overnight no syncope Plan to discharge her home to follow primary care doctor cardiology and GI as outpatient D/W RN D/W pt. Problem Qualifiers (1) Abdominal pain: Qualified Code: R10.84 - Generalized abdominal pain (2) Hypertension: Qualified Code: I10 - Essential hypertension Lorenzo Jones MD Jul 20, 2016 09:43
[2016-07-20] MEDS ORDERED: CIPR-9 PO (09:48)
[2016-07-20] MEDS ORDERED: DILT31TA PO (09:48)
[2016-07-20] MEDS ORDERED: HYDR-3366 PO (09:48)
--- NOTE | 2016-07-20 09:55 | HHI.DS ---
Discharge Summary Admission Date Jul 18, 2016 at 14:18 Admitting Diagnosis syncope (1) Near syncope Diagnosis: Principal (2) Dehydration Diagnosis: Principal (3) Abdominal pain Diagnosis: Principal (4) Atrial fibrillation Diagnosis: Principal (5) Hypertension Diagnosis: Principal (6) Hx of Crohn's disease Diagnosis: Principal (7) History of carotid artery disease Diagnosis: Principal Brief History This is a pleasant 61-year-old female with history of Crohn's disease, presented to the emergency room after she had what sounds like a near syncopal episode while waiting to be seen by cardiology. Patient endorses that she has been having abdominal pain, has seen Dr. Perez for history of gallstones as well as Dr. Birmingham gastroenterology for Crohn's disease. Both doctors were trying to rule out the cause of her abdominal pain., whether it was gallstones vs Chron's flare up. She was scheduled to have a EGD and colonoscopy. while undergoing prep, she developed increased nausea and vomiting therefore she was told by Dr. [place] to go to [facility] to the emergency room. During evaluation at that facility, EKG showed that the patient was in A. fib with RVR with heart rate between 140 and 160. GI work up was put on hold. She was given IV Diltiazem and then was given Cardizem CD and instructed to follow up with Dr. Ohara . Patient denies prior history of atrial fibrillation. Indicates that since April 2016, she's had palpitations with dizziness and near syncopal episodes. Cardiology has done workup consisting of echo, carotid ultrasound and stress test and were all negative. Cardiac cath 2015 showed normal coronaries. Patient states that while waiting to see her residential living assistant, she fell very lightheaded and dizzy. She found that that he was not in the office and she subsequently had a near syncopal episode. She was eased down to the floor by her , she did not hit her head, no neck pain. No chest pain, no shortness of breath. She felt very weak and fatigued, haD diffuse abdominal tenderness which she says is chronic and unchanged. States that she's been on a liquid diet for 1 week waiting for GI workup. she ate a sandwich and tolerated well. She has episodes of constipation and diarrhea associated with Chron's. She is not on any maintenance therapy. During ED evaluation, she was evaluated, was hemodynamically stable. Patient was admitted because of the near syncope. Put on telemetry. Workup was started. Her troponin was negative. As per residential living assistant to rule out PE EQ scan was done. Which was low probability. As per cardiology can be discharged today. As I discussed with him yesterday. As patient is overall a stable plan to discharge her today to be followed by her primary care doctor GI and cardiology as outpatient. Advised to call GI office on Friday so Dr. Flowers can talk to residential living assistant about colonoscopy. Patient and understood very well. CBC/BMP: 07/19/16 0420 07/19/16 0420 Significant Findings Laboratory Tests Test 07/18/16 07/19/16 07/19/16 12:08 04:20 10:00 Chloride Level 114 MEQ/L 115 MEQ/L (98-107) (98-107) Carbon Dioxide Level 19.3 MEQ/L (21.0-32.0) Estimat Glomerular Filtration 68 ML/MIN (>89) 63 ML/MIN (>89) Rate Calcium Level 7.4 MG/DL 7.9 MG/DL (8.5-10.1) (8.5-10.1) Protein Corrected Calcium 7.8 MG/DL (8.5-10.1) Total Bilirubin 1.1 MG/DL (0.2-1.0) Albumin 2.9 GM/DL 2.7 GM/DL (3.4-5.0) (3.4-5.0) Lipase 67 U/L (73-393) Red Blood Count 3.52 MIL/MM3 (4.00-5.30) Hemoglobin 11.0 GM/DL (11.6-15.3) Hematocrit 32.4 % (35.0-46.0) Aspartate Amino Transf 12 U/L (15-37) (AST/SGOT) Total Protein 5.4 GM/DL (6.4-8.2) Urine Turbidity HAZY (CLEAR) Urine Leukocyte Esterase LARGE (NEG) Urine RBC 5 /hpf (0-3) Urine WBC 70 /hpf (0-5) Urine Bacteria OCC /hpf (NONE) Urine Mucus MOD /lpf (OCC) Pt Condition on Discharge: Fair Discharge Disposition: Discharge Home Discharge Instructions DIET: Follow Instructions for: Heart Healthy Diet Additional Diet Instructions: SOFT Activities you can perform: Weight Bearing as Dash Follow up Referrals: Cardiology - 2 Weeks Gastroenterology - 1 Week PCP Follow-up - 1 Week New Medications: Hydrocodone-Acetaminophen ([place]) 10-325 Mg Tab 1 TAB PO Q6H PRN PAIN #30 Ref 0 TAB Ciprofloxacin (Cipro) 500 Mg Tab 500 MG PO Q12HR INFLAMMATION #10 TAB Diltiazem (Cardizem) 30 Mg Tab 30 MG PO TID ARRHYTHMIA #90 TAB Continued Medications: Atorvastatin (Atorvastatin) 10 Mg Tab 10 MG PO DAILY TAB Omeprazole (Omeprazole) 20 Mg Tab 20 MG PO DAILY TAB Paroxetine (Paroxetine) 20 Mg Tab 20 MG PO DAILY TAB Topiramate (Topiramate) 25 Mg Tab 25 MG PO HS TAB Discontinued Medications: Lisinopril (Lisinopril) 10 Mg Tab 10 MG PO DAILY TAB Lorenzo Jones MD Jul 20, 2016 09:55
== END 2016-07-20 10:43 | disposition home or self-care (01) ==
LOC: NEPC 10:02 → NEDA 14:18 → NEPHCDU 16:17
PROVIDERS: ADMIT Specialist; ATTEND Specialist
DX: R55 Syncope and collapse (principal); E86.0 Dehydration; I48.91 Unspecified atrial fibrillation; R10.13 Epigastric pain; I65.29 Occlusion and stenosis of unspecified carotid artery; E78.5 Hyperlipidemia, unspecified; I10 Essential (primary) hypertension; K50.90 Crohn's disease, unspecified, without complications; K80.20 Calculus of gallbladder without cholecystitis without obstruction; K21.9 Gastro-esophageal reflux disease without esophagitis; R11.10 Vomiting, unspecified; R42 Dizziness and giddiness; R51 Headache; Z82.49 Family history of ischemic heart disease and other diseases of the circulatory system
CPT/HCPCS: 71020; 78582; 80053; 81001; 83690; 83735; 83880; 84484; 85025; 87086; 93005; 96360; 96361; 99285; A9540; A9567; G0378; J1100; J2270; J7030